=== PATIENT | female | born 1990 | race Caucasian/White ===

== ENCOUNTER 2018-05-16 14:58 | Emergency (ER) | payer OTHER ==
[~2018-05-16] VITALS: Ht 167.6 cm; Wt 68.0 kg
== END 2018-05-16 19:50 | disposition home or self-care (01) ==
LOC: ER 14:58
DX: J42 Unspecified chronic bronchitis (principal); J18.9 Pneumonia, unspecified organism

== ENCOUNTER 2018-07-21 06:00 | Day surgery (SDC) | payer OTHER | END 2018-07-21 14:20 | disposition home or self-care (01) | LOC: CIR.AMB 06:00 | DX: O02.1 Missed abortion (principal) ==

== ENCOUNTER 2019-07-27 09:22 | Outpatient (CLI) | payer OTHER | END 2019-07-27 10:10 | disposition home or self-care (01) | LOC: NST 09:22 | DX: Z34.82 Encounter for supervision of other normal pregnancy, second trimester (principal) ==

== ENCOUNTER 2019-08-03 08:51 | Outpatient (CLI) | payer OTHER | END 2019-08-03 10:25 | disposition home or self-care (01) | LOC: NST 08:51 | DX: Z34.82 Encounter for supervision of other normal pregnancy, second trimester (principal) ==

== ENCOUNTER 2019-08-10 09:35 | Outpatient (CLI) | payer OTHER | END 2019-08-10 10:35 | disposition home or self-care (01) | LOC: NST 09:35 | DX: O30.092 Twin pregnancy, unable to determine number of placenta and number of amniotic sacs, second trimester (principal) ==

== ENCOUNTER 2019-08-17 13:29 | Outpatient (CLI) | payer OTHER | END 2019-08-17 15:42 | disposition home or self-care (01) | LOC: NST 13:29 | DX: O35.8XX0 Maternal care for other (suspected) fetal abnormality and damage, not applicable or unspecified (principal) ==

== ENCOUNTER 2019-08-24 09:05 | Outpatient (CLI) | payer OTHER | END 2019-08-24 09:42 | disposition home or self-care (01) | LOC: NST 09:05 | DX: O30.093 Twin pregnancy, unable to determine number of placenta and number of amniotic sacs, third trimester (principal); Z3A.38 38 weeks gestation of pregnancy ==

== ENCOUNTER 2019-09-07 09:22 | Outpatient (CLI) | payer OTHER | END 2019-09-07 10:14 | disposition home or self-care (01) | LOC: NST 09:22 | DX: Z34.83 Encounter for supervision of other normal pregnancy, third trimester (principal) ==